=== PATIENT | female | born 1950 | race Caucasian/White ===

== ENCOUNTER → 2017-10-14 | Outpatient (CLI) | payer OTHER | END | disposition home or self-care (01) | LOC: KCIC DEXA 14:40 | DX: Z12.31 Encounter for screening mammogram for malignant neoplasm of breast (principal); Z13.820 Encounter for screening for osteoporosis; M81.0 Age-related osteoporosis without current pathological fracture; M85.88 Other specified disorders of bone density and structure, other site; Z78.0 Asymptomatic menopausal state | CPT/HCPCS: 77067; 77080 ==

== ENCOUNTER → 2018-04-24 | Outpatient (CLI) | payer OTHER ==
--- NOTE | 2018-04-24 11:41 | KCIC ---
Carotid Doppler dated 04/24/2018. Comparison none. Clinical Indication: History of headaches left-sided facial drooping. Findings: Grayscale, color flow and spectral waveform analysis was performed. Mild luminal irregularity throughout consistent with diffuse plaquing. No focal stenosis. The waveforms are within normal limits. Flow within the bilateral vertebral arteries is antegrade. Velocity measurements are as follows (centimeters per second ) Peak systolic velocity right left ICA 119 160 CCA 104 105 ECA 103 116 ICA/CCA ratio 1.14 1.52 Impression: Elevated velocity of the distal left internal carotid artery, suggesting a 50-69% stenosis. No evidence of hemodynamically significant stenosis on the right. Stenosis calculations for carotid ultrasound studies are derived from validated velocity criteria which are known to correlate with the NASCET methodology. Electronically signed by: James Bill MD (04/24/2018 11:38 AM) [id number]
--- NOTE | 2018-04-24 14:12 | KCIC ---
MRI of the brain without contrast 04/24/2018 Clinical History: TIA. Confusion. Episodes left-sided facial drooping since resolved. Migraine headaches. Technique: Unenhanced T1-weighted sagittal and axial, T2-weighted axial and coronal and FLAIR, gradient echo and diffusion-weighted axial images of the brain were obtained. Findings: No previous imaging studies are available for comparison. There is generalized parenchymal atrophy. Patchy and a few small scattered areas of increased signal intensity are seen within the periventricular and subcortical white matter of both cerebral hemispheres on the FLAIR and T2-weighted images consistent with areas of mild small vessel ischemic disease. No acute parenchymal abnormality is seen. No extra-axial fluid collection is seen. There is no MRI evidence of acute ischemia/infarction. Mild mucosal thickening is seen scattered throughout the paranasal sinuses. A 5 mm mucous retention cyst is involving left maxillary sinus. Normal flow voids are seen within the major vascular structures surrounding the brain parenchyma. Impression: No acute parenchymal abnormality is seen. Electronically signed by: Ruiz No MD (04/24/2018 2:09 PM) [facility]
== END | disposition home or self-care (01) ==
LOC: KCIC MRI 10:08
PROVIDERS: ATTEND Psychiatry & Neurology Neurology with Special Qualifications in Child Neurology
DX: G45.8 Other transient cerebral ischemic attacks and related syndromes (principal); J34.1 Cyst and mucocele of nose and nasal sinus
CPT/HCPCS: 70551; 93880

== ENCOUNTER → 2018-07-01 | Outpatient (CLI) | payer OTHER ==
--- NOTE | 2018-07-01 16:20 | KCIC ---
Five-view cervical spine series Clinical indications: Neck strain. Soreness of neck muscles. Patient fell on May 04, 2018. FINDINGS:No acute fracture or discitis or lytic process or prevertebral soft tissue swelling is evident. There is straightening of the normal cervical lordosis which may be seen with muscle spasm. There is moderate degenerative disc space narrowing and endplate spurring at C4-5 and C5-6. Mild degenerative disc space narrowing and endplate spurring is seen at C6-7. IMPRESSION: No fracture. Degenerative cervical spondylosis. Electronically signed by: Collin Christine MD (07/01/2018 4:16 PM) [place] [id number]
== END | disposition home or self-care (01) ==
LOC: KCIC 09:32
PROVIDERS: ATTEND Pediatrics
DX: S16.1XXD Strain of muscle, fascia and tendon at neck level, subsequent encounter (principal); M47.892 Other spondylosis, cervical region; M48.02 Spinal stenosis, cervical region; M46.02 Spinal enthesopathy, cervical region; X58.XXXD Exposure to other specified factors, subsequent encounter
CPT/HCPCS: 72050

== ENCOUNTER → 2018-07-02 | Outpatient (CLI) | payer OTHER ==
--- NOTE | 2018-07-02 15:28 | CARD ---
MR#: [id number] Date of Study: 07/02/2018 Ordering Physician: TYRESE SWEET, Referring Physician: TYRESE SWEET, Tech: Renuka Conte APPROVED REPORT EXAM: Two-dimensional and M-mode echocardiogram with Doppler and color Doppler. Other Information Quality : AverageHR: 67bpm INDICATION Murmur COPD RISK FACTORS Hypertension Hyperlipidemia Smoking 2D DIMENSIONS RVDd2.6 (2.9-3.5cm)Left Atrium(2D)3.8 (1.6-4.0cm) IVSd1.0 (0.7-1.1cm)Aortic Root(2D)3.3 (2.0-3.7cm) LVDd4.3 (3.9-5.9cm)LVOT Diameter2.0 (1.8-2.4cm) PWd1.0 (0.7-1.1cm)LVDs2.6 (2.5-4.0cm) FS (%) 39.3 %SV58.3 ml LVEF(%)70.1 (>50%) Aortic Valve AoV Peak Edy.132.3cm/sAoV VTI27.6cm AO Peak GR.7.0mmHgLVOT Peak Edy.79.5cm/s LVOT VTI 18.35cmAO Mean GR.4mmHg KALYANI (VMAX)1.16xp7SAN (VTI)2.09cm2 Mitral Valve MV E Exdmghfw92.1cm/sMV DECEL XXVG598xj MV A Ieprzwez69.8cm/sMV IYZ94sk E/A Ratio0.8MVA (PHT)3.16cm2 TDI E/Lateral E'9.1E/Medial E'7.0 Pulmonary Valve PV Peak Qgmwwogt55.3cm/sPV Peak Grad.3mmHg Tricuspid Valve TR P. Lniwtcmn643gf/sRAP WDCHTAAU7sxBo TR Peak Gr.93vfEkNPDE49ueIa Pulmonary Vein S1 Uytrniat00.6cm/sD2 Tdbnlvcb70.5cm/s PVa fvosrjjg484mulv LEFT VENTRICLE The left ventricle is normal size. There is normal left ventricular wall thickness. The left ventricu lar systolic function is normal and the ejection fraction is within normal range. The Ejection Fracti on is >55%. There is normal LV segmental wall motion. Transmitral Doppler flow pattern is Grade I-abn ormal relaxation pattern. RIGHT VENTRICLE The right ventricle is normal size. There is normal right ventricular wall thickness. The right ventr icular systolic function is normal. ATRIA The left atrium size is normal. The right atrium size is normal. The interatrial septum is intact wit h no evidence for an atrial septal defect or patent foramen ovale as noted on 2-D or Doppler imaging. AORTIC VALVE The aortic valve is normal in structure and function. Doppler and Color Flow revealed trace aortic re gurgitation. There is no significant aortic valvular stenosis. MITRAL VALVE The mitral valve is normal in structure and function. There is no evidence of mitral valve prolapse. There is no mitral valve stenosis. Doppler and Color Flow revealed no mitral valve regurgitation note d. TRICUSPID VALVE The tricuspid valve is normal in structure and function. Doppler and Color Flow revealed mild tricusp id regurgitation with an estimated PAP of 33 mmHg. There is no tricuspid valve stenosis. PULMONIC VALVE The pulmonary valve is normal in structure and function. Doppler and Color Flow revealed trace pulmon ic valvular regurgitation. GREAT VESSELS The aortic root is normal in size. The IVC is normal in size and collapses >50% with inspiration. PERICARDIAL EFFUSION There is no evidence of significant pericardial effusion. Critical Notification Critical Value: No <Conclusion> The left ventricular systolic function is normal and the ejection fraction is within normal range. Th e Ejection Fraction is >55%. There is normal LV segmental wall motion. Signed by : Checo Nielsno, Electronically Approved : 07/02/2018 15:26:33
== END | disposition home or self-care (01) ==
LOC: ECHO 12:27
PROVIDERS: ATTEND Pediatrics
DX: I36.1 Nonrheumatic tricuspid (valve) insufficiency (principal); R00.8 Other abnormalities of heart beat; J44.9 Chronic obstructive pulmonary disease, unspecified; I10 Essential (primary) hypertension; E78.5 Hyperlipidemia, unspecified; F17.200 Nicotine dependence, unspecified, uncomplicated
CPT/HCPCS: 93306

== ENCOUNTER → 2018-10-15 | Outpatient (CLI) | payer OTHER ==
--- NOTE | 2018-10-15 17:58 | KCIC ---
Bilateral digital screening mammograms with 3-D tomosynthesis: Reason for examination: Routine screening. Comparison is made to previous study dated 10/14/2017. Bilateral mammograms in CC and oblique projections were obtained with 2-D imaging and 3-D tomosynthesis imaging on a Siemens Inspiration unit and reviewed on the workstation. Interpretation was made with the benefit of CAD. The skin and nipples show no abnormalities. No abnormal axillary lymph nodes are seen. The breast parenchyma is extremely dense. (Breast density: Category D.) There are no dominant masses, suspicious calcifications or architectural distortion. Benign calcifications are present. Impression: No evidence of malignancy. Recommend routine screening. Your patient's mammogram demonstrates that she has dense breast tissue (breast density category C or D), which could hide abnormalities, and if she has other risk factors for breast cancer that have been identified, she might benefit from supplemental screening tests that may be suggested by you as her ordering physician. Dense breast tissue, in and of itself, is a relatively common condition. Therefore, this information is not provided to cause undue concern, but rather to raise your awareness and to promote discussion with your patient regarding the presence of other risk factors, in addition to dense breast tissue. Your patient's mammography results will be sent to her. BI-RAD Category 2: Benign. "Our facility is accredited by the [employer] Mammography Program." This patient's information has been entered into a reminder system for the patient to be notified with the results of her examination and a target date for the next mammogram. Electronically signed by: Lexis Valladares MD (10/15/2018 5:55 PM) [id number]
== END | disposition home or self-care (01) ==
LOC: KCIC MAMMO 14:21
PROVIDERS: ATTEND Pediatrics
DX: Z12.31 Encounter for screening mammogram for malignant neoplasm of breast (principal); R92.1 Mammographic calcification found on diagnostic imaging of breast
CPT/HCPCS: 77063; 77067